=== PATIENT | female | born 1965 | race Caucasian/White ===

== ENCOUNTER → 2016-09-26 | Outpatient (CLI) | payer MEDICARE, OTHER ==
[~2016-09-26] MED LIST: HYDR-2768 PO; LEXA5SOL PO; METO10TA PO; PROT40TA PO; QUET1TAB67 PO; SIME1CHW12 PO; ZOCO40TA PO
[2016-09-26 12:25] LABS: HDL CHOLESTEROL 52.3 MG/DL (40.0-60.0)
== END ==
LOC: PLAB 08:35
PROVIDERS: ATTEND Family Medicine
DX: E78.5 Hyperlipidemia, unspecified (principal); R74.0 Nonspecific elevation of levels of transaminase and lactic acid dehydrogenase [LDH]
CPT/HCPCS: 36415; 80061; 84450; 84460

== ENCOUNTER → 2017-03-28 | Outpatient (CLI) | payer MEDICARE, OTHER ==
[2017-03-28 14:27] LABS: CHOLESTEROL/ HDL RATIO 3.53 RATIO; HDL CHOLESTEROL 51.8 MG/DL (40.0-60.0)
== END ==
LOC: PLAB 08:34
PROVIDERS: ATTEND Family Medicine
DX: E78.5 Hyperlipidemia, unspecified (principal); Z13.1 Encounter for screening for diabetes mellitus
CPT/HCPCS: 36415; 80061; 82947; 84450; 84460